=== PATIENT | female | born 1980 | race Caucasian/White ===

== ENCOUNTER → 2016-07-02 | Outpatient (REF) | payer OTHER ==
[2016-07-02 12:54] LABS: PERCENT SATURATION 6.8 % (13.2-37.4)
== END ==
LOC: M LAB REF 12:14
PROVIDERS: ATTEND Internal Medicine Medical Oncology
DX: C50.919 Malignant neoplasm of unspecified site of unspecified female breast (principal)

== ENCOUNTER → 2016-08-04 | Outpatient (REF) | payer OTHER ==
[2016-08-04 14:24] LABS: ALBUMIN 3.5 GM/DL (3.2-5.2); ALBUMIN/GLOBULIN RATIO 1.17 (1.00-1.93); ALKALINE PHOSPHATASE 70 U/L (45-117); ALT/SGPT 34 U/L (12-78); ANION GAP 7 MEQ/L (8-16); AST/SGOT 26 U/L (15-37); BILIRUBIN,TOTAL 0.1 MG/DL (0.2-1.0); BLOOD UREA NITROGEN 5 MG/DL (7-18); CALCIUM LEVEL 8.3 MG/DL (8.5-10.1); CARBON DIOXIDE LEVEL 28 MEQ/L (21-32); CHLORIDE LEVEL 107 MEQ/L (98-107); CHOLESTEROL LEVEL 166 MG/DL (<200); FREE T4 0.99 NG/DL (0.76-1.46); GLOMERULAR FILTRATION RATE > 60.0 (>60); GLUCOSE, FASTING 79 MG/DL (70-105); POTASSIUM SERUM 3.4 MEQ/L (3.5-5.1); SODIUM LEVEL 142 MEQ/L (136-145); TOTAL PROTEIN 6.5 GM/DL (6.4-8.2); TRIGLYCERIDES LEVEL 152 MG/DL (<150)
[2016-08-04 15:10] LABS: MEAN CORPUSCULAR HEMOGLOBIN 28.6 pg (27.0-33.0); MEAN CORPUSCULAR VOLUME 92.2 fl (80.0-96.0); RED CELL DISTRIBUTION WIDTH 17.5 % (11.5-14.5)
== END ==
LOC: M LAB REF 12:51
PROVIDERS: ATTEND Advanced Practice Midwife
DX: Z01.419 Encounter for gynecological examination (general) (routine) without abnormal findings (principal)

== ENCOUNTER 2018-03-19 23:37 | Emergency (ER) | payer SELFPAY, MEDICAID, OTHER ==
[2018-03-20 00:36] LABS: CONTROL LINE HCG INT CTR LINE PRESENT; HCG, SERUM QUALITATIVE NEGATIVE (NEGATIVE)
[2018-03-20 00:38] LABS: HEMATOCRIT 41.2 % (36.0-47.0); HEMOGLOBIN 14.3 g/dl (12.0-15.5); MEAN CORPUSCULAR HGB CONC 34.7 g/dl (32.0-36.5); MEAN CORPUSCULAR VOLUME 95.2 fl (80.0-96.0); PLATELET COUNT, AUTOMATED 342 10^3/uL (150-450); RED BLOOD COUNT 4.33 10^6/uL (4.00-5.40); RED CELL DISTRIBUTION WIDTH 12.5 % (11.5-14.5); WHITE BLOOD COUNT 18.9 10^3/uL (4.0-10.0)
[2018-03-20 00:58] LABS: ACETAMINOPHEN LEVEL < 2.0 UG/ML (10.0-30.0); ALBUMIN 3.8 GM/DL (3.2-5.2); ALBUMIN/GLOBULIN RATIO 1.09 (1.00-1.93); ALKALINE PHOSPHATASE 76 U/L (45-117); ALT/SGPT 15 U/L (12-78); ANION GAP 6 MEQ/L (8-16); AST/SGOT 12 U/L (7-37); BILIRUBIN,DIRECT < 0.1 MG/DL (0.0-0.2); BILIRUBIN,TOTAL 0.3 MG/DL (0.2-1.0); BLOOD UREA NITROGEN 3 MG/DL (7-18); CALCIUM LEVEL 8.6 MG/DL (8.5-10.1); CARBON DIOXIDE LEVEL 27 MEQ/L (21-32); CHLORIDE LEVEL 113 MEQ/L (98-107); CREATININE FOR GFR 0.63 MG/DL (0.55-1.30); GLOMERULAR FILTRATION RATE > 60.0 (>60); GLUCOSE, FASTING 95 MG/DL (70-100); SALICYLATE LEVEL 6.7 MG/DL (5.0-30.0); SODIUM LEVEL 146 MEQ/L (136-145); TOTAL PROTEIN 7.3 GM/DL (6.4-8.2)
[2018-03-20 01:10] LABS: AMPHETAMINES LEVEL URINE NEGATIVE (NEGATIVE); BARBITURATES URINE NEGATIVE (NEGATIVE); BENZODIAZEPINES URINE NEGATIVE (NEGATIVE); CANNABINOIDS URINE NEGATIVE (NEGATIVE); COCAINE METABOLITE URINE NEGATIVE (NEGATIVE); METHADONE URINE NEGATIVE (NEGATIVE); OPIATES URINE POSITIVE (NEGATIVE); PHENCYCLIDINE URINE NEGATIVE (NEGATIVE)
== END 2018-03-20 02:49 | disposition home or self-care (01) ==
LOC: M ED 23:37
DX: F10.229 Alcohol dependence with intoxication, unspecified (principal); Z60.9 Problem related to social environment, unspecified; Z85.3 Personal history of malignant neoplasm of breast; Z88.5 Allergy status to narcotic agent; Z88.8 Allergy status to other drugs, medicaments and biological substances
CPT/HCPCS: G0480

== ENCOUNTER 2018-03-30 10:44 | Emergency (ER) | payer SELFPAY ==
[2018-03-30] MEDS: ALBUTEROL 90 MCG/ACT 8GM HFA INHALER INH (11:25)
== END 2018-03-30 12:15 | disposition home or self-care (01) ==
LOC: M ED 10:44
DX: J01.90 Acute sinusitis, unspecified (principal); J20.9 Acute bronchitis, unspecified; Z88.5 Allergy status to narcotic agent; Z88.8 Allergy status to other drugs, medicaments and biological substances; F17.210 Nicotine dependence, cigarettes, uncomplicated
CPT/HCPCS: 71046

== ENCOUNTER → 2018-06-19 | Outpatient (CLI) | payer OTHER ==
[~2018-06-19] MED LIST: DOXY100C PO; IBUP-1022 PO; [UNRECOGNIZED DRUG - OTHER] PO
--- NOTE | 2018-06-20 02:40 | REP ---
Clinical: Acute bronchitis . Comparison: 03/30/2018 . Technique: PA and lateral. Findings: The mediastinum and cardiac silhouette are normal. The lung gupta are clear and without acute consolidation, effusion, or pneumothorax. The skeletal structures are intact and normal. A few surgical clips identified in the left breast/chest. Impression: 1. No acute cardiopulmonary process. Electronically Signed by Roberto Madrid MD 06/20/2018 02:31 A
== END ==
LOC: M LRY 12:12
PROVIDERS: ATTEND Nurse Practitioner Family
DX: J40 Bronchitis, not specified as acute or chronic (principal)

== ENCOUNTER → 2018-06-30 | Outpatient (CLI) | payer BC ==
[2018-06-30 11:32] LABS: BASO % 0.4 % (0.0-1.0); EOS # 0.1 10^3/uL (0.0-0.50); EOS % 1.1 % (0.0-3.0); HEMATOCRIT 40.1 % (36.0-47.0); HEMOGLOBIN 13.7 g/dl (12.0-15.5); LYMPH # 2.6 10^3/uL (1.5-4.5); LYMPH % 28.4 % (24.0-44.0); MEAN CORPUSCULAR HEMOGLOBIN 32.9 pg (27.0-33.0); MEAN CORPUSCULAR HGB CONC 34.2 g/dl (32.0-36.5); MEAN CORPUSCULAR VOLUME 96.4 fl (80.0-96.0); MONO # 0.5 10^3/uL (0.0-0.8); MONO % 5.4 % (0.0-5.0); NEUTROPHILS # 5.9 10^3/uL (1.8-7.7); NEUTROPHILS % 64.3 % (36.0-66.0); PLATELET COUNT, AUTOMATED 307 10^3/uL (150-450); RED BLOOD COUNT 4.16 10^6/uL (4.00-5.40); WHITE BLOOD COUNT 9.1 10^3/uL (4.0-10.0)
[2018-06-30 12:13] LABS: ALBUMIN 3.6 GM/DL (3.2-5.2); ALT/SGPT 15 U/L (12-78); BILIRUBIN,TOTAL 0.6 MG/DL (0.2-1.0); BLOOD UREA NITROGEN 5 MG/DL (7-18); CALCIUM LEVEL 8.2 MG/DL (8.5-10.1); CARBON DIOXIDE LEVEL 25 MEQ/L (21-32); CHLORIDE LEVEL 106 MEQ/L (98-107); GLOMERULAR FILTRATION RATE > 60.0 (>60); GLUCOSE, FASTING 93 MG/DL (70-100); POTASSIUM SERUM 4.3 MEQ/L (3.5-5.1); SODIUM LEVEL 138 MEQ/L (136-145); TOTAL PROTEIN 6.8 GM/DL (6.4-8.2)
== END ==
LOC: M LAB 10:43
PROVIDERS: ATTEND Nurse Practitioner Family
DX: J40 Bronchitis, not specified as acute or chronic (principal)

== ENCOUNTER → 2018-07-26 | Outpatient (REF) | payer BC ==
[2018-07-26 19:11] LABS: APPEARANCE, URINE CLEAR (CLEAR); BACTERIA, URINE AUTO 1+ (NEGATIVE); BILIRUBIN, URINE AUTO NEGATIVE (NEGATIVE); BLOOD, URINE BLOOD NEGATIVE (NEGATIVE); COLOR, URINE AMBER (YELLOW); GLUCOSE, URINE (UA) AUTO NEGATIVE (NEGATIVE); KETONE, URINE AUTO NEGATIVE (NEGATIVE); LEUKOCYTE ESTERASE, URINE AUTO NEGATIVE (NEGATIVE); MUCUS, URINE SMALL (NEGATIVE); NITRITE, URINE AUTO NEGATIVE (NEGATIVE); PROTEIN, URINE AUTO NEGATIVE (NEGATIVE); RBC, URINE AUTO 2 /HPF (0-3); SPECIFIC GRAVITY URINE AUTO 1.005 (1.002-1.035); SQUAMOUS EPITHELIAL CELL UR AU 2 /HPF (0-6); WBC, URINE AUTO 3 /HPF (0-3)
== END ==
LOC: M LAB REF 18:08
PROVIDERS: ATTEND Physician Assistant
DX: N39.0 Urinary tract infection, site not specified (principal)

== ENCOUNTER → 2019-02-22 | Outpatient (CLI) | payer BC ==
[~2019-02-22] MED LIST changes: +PROHANCE 279.3MG/ML 15ML VIAL (A9576) As Ordered ONE; +TAMO20TA8 PO
--- NOTE | 2019-02-22 17:54 | REP ---
MRI BILATERAL BREASTS WITH AND WITHOUT CONTRAST: HISTORY: Breast cancer with bilateral mastectomy and breast implants. Bilateral breast pain. TECHNIQUE: Multiple sequences obtained in the axial, coronal and sagittal planes prior to and following the intravenous administration of 10 ml ProHance. Images are evaluated in the [employer] software including dynamic axial, T1 FS images, subtraction images, color overlay images, CAD images and MIP reconstruction images. Bilateral breast implants are intact. There is no evidence of intracapsular or extracapsular rupture. No axillary adenopathy is seen. No abnormal enhancement or enhancing mass is seen in the soft tissues surrounding the implants. I do not see any significant enhancing breast tissue. IMPRESSION: BI-RADS category 2 benign breast MRI. Bilateral breast implants appear intact with no evidence of intracapsular or extracapsular rupture. I see no evidence of axillary adenopathy or other suspicious enhancing soft tissue mass. Electronically Signed by Raad Byrne MD 02/24/2019 11:02 A
== END ==
LOC: M RAD 14:50
DX: N64.4 Mastodynia (principal); Z85.3 Personal history of malignant neoplasm of breast; Z98.82 Breast implant status
CPT/HCPCS: A9576; C8908

== ENCOUNTER → 2019-11-02 | Outpatient (REF) | payer BC ==
[~2019-11-02] MED LIST changes: -PROHANCE 279.3MG/ML 15ML VIAL (A9576) As Ordered ONE
[2019-11-02 17:16] LABS: BASO % 0.6 % (0.0-1.0); EOS # 0.1 10^3/uL (0.0-0.5); EOS % 1.4 % (0.0-3.0); HEMATOCRIT 44.3 % (36.0-47.0); LYMPH # 3.8 10^3/uL (1.5-5.0); LYMPH % 53.1 % (24.0-44.0); MEAN CORPUSCULAR HEMOGLOBIN 33.7 pg (27.0-33.0); MEAN CORPUSCULAR HGB CONC 33.9 g/dl (32.0-36.5); MEAN CORPUSCULAR VOLUME 99.6 fl (80.0-96.0); MONO # 0.3 10^3/uL (0.0-0.8); MONO % 4.6 % (0.0-5.0); NEUTROPHILS # 2.9 10^3/uL (1.5-8.5); PLATELET COUNT, AUTOMATED 338 10^3/uL (150-450); RED BLOOD COUNT 4.45 10^6/uL (4.00-5.40); WHITE BLOOD COUNT 7.2 10^3/uL (4.0-10.0)
== END ==
LOC: M LAB REF 17:02
PROVIDERS: ATTEND Physician Assistant
DX: L30.9 Dermatitis, unspecified (principal)

== ENCOUNTER → 2020-10-14 | Outpatient (CLI) | payer BC ==
[~2020-10-14] MED LIST changes: +DULO1CAP5 PO; +PROHANCE 279.3MG/ML 15ML VIAL As Ordered ONE
--- NOTE | 2020-10-14 13:25 | REPVR ---
PROCEDURE INFORMATION: Exam: MR Head Without and With Contrast Exam date and time: 10/14/2020 11:33 AM Age: 40 years old Clinical indication: Pain; Headache not specified; Additional info: Brain CA with headaches. There is a history of breast cancer. TECHNIQUE: Imaging protocol: MR of the head without and with intravenous contrast. Contrast material: PROHANCE; Contrast volume: 10 ml; Contrast route: INTRAVENOUS (IV); COMPARISON: NM Bone Scan Whole Body 07/31/2015 11:16 AM FINDINGS: Brain: No acute infarct identified on the diffusion-weighted imaging. No evidence of brain parenchymal edema or intracranial mass effect. No significant white matter disease. No enhancing intracranial pathology. Cerebral ventricles: Normal. No ventriculomegaly. Bones/joints: Unremarkable. Paranasal sinuses: Normal as visualized. No acute sinusitis. Mastoid air cells: Normal as visualized. No mastoid effusion. Orbital cavity: Unremarkable. Soft tissues: Unremarkable. IMPRESSION: No acute intracranial abnormality. No evidence of intracranial metastatic disease. Electronically signed by: Tram Hugo On 10/14/2020 13:24:53 PM
== END ==
LOC: M RAD 11:26
PROVIDERS: ATTEND Internal Medicine Medical Oncology
DX: C71.9 Malignant neoplasm of brain, unspecified (principal)
CPT/HCPCS: 70553; A9576

== ENCOUNTER → 2020-11-13 | Outpatient (CLI) | payer BC ==
[~2020-11-13] MED LIST changes: -PROHANCE 279.3MG/ML 15ML VIAL As Ordered ONE
--- NOTE | 2020-11-13 11:38 | REP ---
INDICATION: PAIN IN RIGHT SHOULDER. COMPARISON: None. TECHNIQUE: Three views of the right shoulder are provided. FINDINGS: The right glenohumeral articulation is normally aligned. No fracture is seen. There is some superior subluxation of the distal clavicle relative to the acromion process raising question of AC separation injury. No acromioclavicular fracture is apparent. Right rib cage is intact. There are 2 surgical clips visible in the soft tissues along the right chest wall. IMPRESSION: Mild AC separation injury suspected. Otherwise negative right shoulder radiographs.a <Electronically signed by Charlie Kay > 11/13/20 [id number]
== END ==
LOC: M RAD 11:00
PROVIDERS: ATTEND Nurse Practitioner Family
DX: M25.511 Pain in right shoulder (principal)

== ENCOUNTER → 2021-10-13 | Outpatient (REF) | payer BC ==
[~2021-10-13] MED LIST changes: -DOXY100C PO; +DOXY100C3 PO
== END ==
LOC: M SFHCLERA 11:26
PROVIDERS: ATTEND Student in an Organized Health Care Education/Training Program
DX: Z12.4 Encounter for screening for malignant neoplasm of cervix (principal); N76.0 Acute vaginitis; L85.9 Epidermal thickening, unspecified
CPT/HCPCS: 87070; 87624; G0123

== ENCOUNTER → 2021-11-27 | Outpatient (CLI) | payer BC ==
[~2021-11-27] MED LIST changes: +PROHANCE 279.3MG/ML 15ML VIAL As Ordered ONE
== END ==
LOC: M RAD 10:32
PROVIDERS: ATTEND Internal Medicine Medical Oncology
DX: C50.412 Malignant neoplasm of upper-outer quadrant of left female breast (principal); Z98.82 Breast implant status
CPT/HCPCS: A9576; C8908

== ENCOUNTER → 2022-09-20 | Outpatient (CLI) | payer BC ==
[~2022-09-20] MED LIST changes: -PROHANCE 279.3MG/ML 15ML VIAL As Ordered ONE
[2022-09-20 12:22] LABS: BASO # 0.1 10^3/uL (0.0-0.2); BASO % 0.4 % (0.0-1.0); EOS # 0.1 10^3/uL (0.0-0.5); EOS % 0.8 % (0.0-3.0); HEMATOCRIT 42.2 % (36.0-47.0); LYMPH # 5.7 10^3/uL (1.5-5.0); LYMPH % 40.6 % (24.0-44.0); MEAN CORPUSCULAR HEMOGLOBIN 32.3 pg (27.0-33.0); MEAN CORPUSCULAR HGB CONC 33.2 g/dl (32.0-36.5); MEAN CORPUSCULAR VOLUME 97.2 fl (80.0-96.0); MONO # 0.6 10^3/uL (0.0-0.8); MONO % 4.2 % (2.0-8.0); NEUTROPHILS # 7.6 10^3/uL (1.5-8.5); NEUTROPHILS % 53.6 % (36.0-66.0); PLATELET COUNT, AUTOMATED 344 10^3/uL (150-450); RED BLOOD COUNT 4.34 10^6/uL (4.00-5.40); WHITE BLOOD COUNT 14.1 10^3/uL (4.0-10.0)
[2022-09-20 12:50] LABS: ALBUMIN 3.8 G/DL (3.2-5.2); ALKALINE PHOSPHATASE 71 U/L (46-116); ALT/SGPT 12 U/L (7.0-40); AST/SGOT 9 U/L (<34); BILIRUBIN,TOTAL 0.2 MG/DL (0.3-1.2); BLOOD UREA NITROGEN 5 MG/DL (9-23); CALCIUM LEVEL 9.4 MG/DL (8.5-10.1); CARBON DIOXIDE LEVEL 29 MMOL/L (20-31); CHLORIDE LEVEL 107 MMOL/L (98-107); CHOLESTEROL LEVEL 211 MG/DL (<200); CHOLESTEROL RISK RATIO 4.23 (<5); CREATININE FOR GFR 0.53 MG/DL (0.55-1.30); GLOMERULAR FILTRATION RATE > 60.0 (>58); GLUCOSE, FASTING 68 MG/DL (60-100); HDL CHOLESTEROL 49.8 MG/DL (>40); NON-HDL-C 161.2 MG/DL; POTASSIUM SERUM 3.5 MMOL/L (3.5-5.1); SODIUM LEVEL 136 MMOL/L (136-145); TOTAL PROTEIN 6.7 G/DL (5.7-8.2); TRIGLYCERIDES LEVEL 181 MG/DL (<150)
[2022-09-20 12:52] LABS: FREE T4 0.89 NG/DL (0.89-1.76)
[2022-09-20 12:53] LABS: THYROID STIMULATING HORMONE 2.443 uIU/ML (0.55-4.78)
== END ==
LOC: M LAB 11:43
PROVIDERS: ATTEND Student in an Organized Health Care Education/Training Program
DX: Z00.00 Encounter for general adult medical examination without abnormal findings (principal); R53.83 Other fatigue

== ENCOUNTER 2022-12-26 21:14 | Emergency (ER) | payer BC ==
[~2022-12-26] VITALS: Ht 165.1 cm; Wt 59.1 kg
[~2022-12-26 21:14] MED LIST changes: +DULO1CAP6 PO; +GABA-282 PO
[2022-12-26 22:00] LABS: HEMATOCRIT 42.5 % (36.0-47.0); HEMOGLOBIN 14.4 g/dl (12.0-15.5); MEAN CORPUSCULAR HEMOGLOBIN 32.1 pg (27.0-33.0); MEAN CORPUSCULAR HGB CONC 33.9 g/dl (32.0-36.5); MEAN CORPUSCULAR VOLUME 94.9 fl (80.0-96.0); PLATELET COUNT, AUTOMATED 332 10^3/uL (150-450); RED BLOOD COUNT 4.48 10^6/uL (4.00-5.40)
[2022-12-26 22:23] LABS: LIPASE 31 U/L (12-53)
[2022-12-26 22:25] LABS: ALBUMIN 3.9 G/DL (3.2-5.2); ALKALINE PHOSPHATASE 72 U/L (46-116); ALT/SGPT 9 U/L (7.0-40); AST/SGOT < 8 U/L (<34); BILIRUBIN,DIRECT 0.2 MG/DL (<0.4); BILIRUBIN,TOTAL 0.7 MG/DL (0.3-1.2); BLOOD UREA NITROGEN 9 MG/DL (9-23); CALCIUM LEVEL 9.2 MG/DL (8.5-10.1); CARBON DIOXIDE LEVEL 28 MMOL/L (20-31); CHLORIDE LEVEL 105 MMOL/L (98-107); CREATININE FOR GFR 0.64 MG/DL (0.55-1.30); GLOMERULAR FILTRATION RATE > 60.0 (>58); GLUCOSE, FASTING 85 MG/DL (60-100); POTASSIUM SERUM 3.9 MMOL/L (3.5-5.1); SODIUM LEVEL 137 MMOL/L (136-145); TOTAL PROTEIN 7.1 G/DL (5.7-8.2)
[2022-12-26 22:54] LABS: ATYPICAL LYMPH 4 % (0-5); EOSINOPHILS 1 % (0-3); LYMPHOCYTES 44 % (16-44); MONOCYTES 5 % (0-5); NEUTROPHILS 46 % (28-66); PLATELET ESTIMATE NORMAL (NORMAL)
[2022-12-27] MEDS ORDERED: KETOROLAC 30 MG/ML 1ML VIAL IV ONE (00:45)
[2022-12-27] MEDS ORDERED: ONDANSETRON 4MG 2ML VIAL IV ONE (00:45)
[2022-12-27] MEDS ORDERED: NS 1,000 ML IV ONE (00:45)
[2022-12-27] MEDS ORDERED: UNRESOLVED CLARIFICATION ENTRY XX STA (01:04)
[2022-12-27] MEDS ORDERED: ONDANSETRON 4MG ORAL DISINTEGRATING TAB PO ONE (01:45)
[2022-12-27] MEDS ORDERED: ONDA4TAB6 PO (01:46)
[2022-12-27 02:15] VITALS: BP 129/77; TEMP 97.8; O2SAT 99
[2022-12-28] MEDS ORDERED: UNRESOLVED CLARIFICATION ENTRY XX SCH (00:01)
== END 2022-12-27 02:15 | disposition home or self-care (01) ==
LOC: M ED 21:14
DX: A08.11 Acute gastroenteropathy due to Norwalk agent (principal); F17.200 Nicotine dependence, unspecified, uncomplicated; F10.10 Alcohol abuse, uncomplicated; Z88.5 Allergy status to narcotic agent; Z79.810 Long term (current) use of selective estrogen receptor modulators (SERMs); Z79.899 Other long term (current) drug therapy
CPT/HCPCS: 74176; 80048; 80076; 81001; 83690; 85025; 96361; 96374; 99284; J1885; J2405

== ENCOUNTER → 2023-01-06 | Outpatient (CLI) | payer BC ==
[~2023-01-06] MED LIST changes: +GASTROGRAFIN SOLUTION 30ML As Ordered ONE; +ISOVUE-370 76% 100ML VIAL As Ordered ONE; +ONDA4TAB6 PO
== END ==
LOC: M RAD 07:01
PROVIDERS: ATTEND Internal Medicine Medical Oncology
DX: C50.912 Malignant neoplasm of unspecified site of left female breast (principal); R10.84 Generalized abdominal pain
CPT/HCPCS: 74177; Q9963; Q9967

== ENCOUNTER → 2023-01-24 | Outpatient (CLI) | payer BC ==
[~2023-01-24] MED LIST changes: -GASTROGRAFIN SOLUTION 30ML As Ordered ONE; -ISOVUE-370 76% 100ML VIAL As Ordered ONE; +PROHANCE 279.3MG/ML 15ML VIAL As Ordered ONE
== END ==
LOC: M RAD 15:39
PROVIDERS: ATTEND Internal Medicine Medical Oncology
DX: C50.919 Malignant neoplasm of unspecified site of unspecified female breast (principal)

== ENCOUNTER → 2023-02-09 | Outpatient (CLI) | payer BC ==
[~2023-02-09] MED LIST changes: +ISOVUE-370 76% 100ML VIAL As Ordered ONE; -PROHANCE 279.3MG/ML 15ML VIAL As Ordered ONE
== END ==
LOC: M RAD 15:03
PROVIDERS: ATTEND Internal Medicine Medical Oncology
DX: C50.919 Malignant neoplasm of unspecified site of unspecified female breast (principal)
CPT/HCPCS: 71260; Q9967

== ENCOUNTER 2023-02-14 10:50 | Day surgery (SDC) | payer BC ==
[~2023-02-14] VITALS: Ht 165.1 cm; Wt 55.9 kg
[~2023-02-14 10:50] MED LIST changes: -ISOVUE-370 76% 100ML VIAL As Ordered ONE; +NS 1,000 ML IV ONE
[2023-02-14 12:22] VITALS: TEMP 98.1
[2023-02-14 12:56] VITALS: BP 99/58; O2SAT 99
== END 2023-02-14 12:59 | disposition home or self-care (01) ==
LOC: M OPP 10:50
PROVIDERS: ATTEND Internal Medicine Gastroenterology
DX: D12.6 Benign neoplasm of colon, unspecified (principal); K64.4 Residual hemorrhoidal skin tags; K64.8 Other hemorrhoids; K59.00 Constipation, unspecified; K30 Functional dyspepsia; K22.89 Other specified disease of esophagus; K29.70 Gastritis, unspecified, without bleeding; K31.89 Other diseases of stomach and duodenum; B37.81 Candidal esophagitis; F17.200 Nicotine dependence, unspecified, uncomplicated; Z79.891 Long term (current) use of opiate analgesic; Z79.899 Other long term (current) drug therapy; Z88.5 Allergy status to narcotic agent; Z88.6 Allergy status to analgesic agent

== ENCOUNTER → 2023-02-17 | Outpatient (REF) | payer BC ==
[~2023-02-17] MED LIST changes: -NS 1,000 ML IV ONE
== END ==
LOC: M SFHCWAGY 13:34
PROVIDERS: ATTEND Obstetrics & Gynecology
DX: Z12.4 Encounter for screening for malignant neoplasm of cervix (principal)
CPT/HCPCS: 87624; G0123

== ENCOUNTER → 2023-02-25 | Outpatient (CLI) | payer BC | LOC: M WHC 08:24 | PROVIDERS: ATTEND Obstetrics & Gynecology | DX: N93.9 Abnormal uterine and vaginal bleeding, unspecified (principal) ==

== ENCOUNTER → 2023-03-03 | Outpatient (CLI) | payer BC ==
[~2023-03-03] MED LIST changes: +PROHANCE 279.3MG/ML 15ML VIAL As Ordered ONE
== END ==
LOC: M RAD 12:35
PROVIDERS: ATTEND Internal Medicine Medical Oncology
DX: K76.89 Other specified diseases of liver (principal); C50.919 Malignant neoplasm of unspecified site of unspecified female breast
CPT/HCPCS: 74183; A9576

== ENCOUNTER 2023-03-10 08:26 | Inpatient (IN) | payer BC ==
[2023-03-10] VITALS (15 sets, daily range): BP systolic 101–158; BP diastolic 58–94; TEMP 97.7–97.9; O2SAT 96–100
[~2023-03-10] VITALS: Ht 165.1 cm; Wt 57.2 kg
[~2023-03-10 08:26] MED LIST changes: -PROHANCE 279.3MG/ML 15ML VIAL As Ordered ONE
[2023-03-10 11:10] LABS: BASO # 0.1 10^3/uL (0.0-0.2); BASO % 0.5 % (0.0-1.0); EOS # 0.1 10^3/uL (0.0-0.5); EOS % 1.1 % (0.0-3.0); HEMATOCRIT 40.6 % (36.0-47.0); HEMOGLOBIN 13.8 g/dl (12.0-15.5); LYMPH # 3.5 10^3/uL (1.5-5.0); LYMPH % 34.1 % (24.0-44.0); MEAN CORPUSCULAR HEMOGLOBIN 32.2 pg (27.0-33.0); MEAN CORPUSCULAR VOLUME 94.9 fl (80.0-96.0); MONO # 0.5 10^3/uL (0.0-0.8); MONO % 4.8 % (2.0-8.0); NEUTROPHILS # 6.1 10^3/uL (1.5-8.5); NEUTROPHILS % 59.1 % (36.0-66.0); PLATELET COUNT, AUTOMATED 339 10^3/uL (150-450); RED BLOOD COUNT 4.28 10^6/uL (4.00-5.40); WHITE BLOOD COUNT 10.4 10^3/uL (4.0-10.0)
[2023-03-10] MEDS ORDERED: MED REC IN PROGRESS XX SCH (11:15)
[2023-03-10 11:23] LABS: INR 0.95; PROTHROMBIN TIME 12.4 SECONDS (12.5-14.5)
[2023-03-10 11:24] LABS: PARTIAL THROMBOPLASTIN TIME 28.6 SECONDS (24.8-34.2)
[2023-03-10 11:32] LABS: CK-MB VALUE MASS < 1.0 NG/ML (<3.6)
[2023-03-10 11:33] LABS: BLOOD UREA NITROGEN 6 MG/DL (9-23); CARBON DIOXIDE LEVEL 24 MMOL/L (20-31); CHLORIDE LEVEL 109 MMOL/L (98-107); CREATININE FOR GFR 0.55 MG/DL (0.55-1.30); GLOMERULAR FILTRATION RATE > 60.0 (>58); GLUCOSE, FASTING 111 MG/DL (60-100); POTASSIUM SERUM 4.1 MMOL/L (3.5-5.1); SODIUM LEVEL 138 MMOL/L (136-145)
[2023-03-10] MEDS ORDERED: HOME MED LIST COMPLETE! XX SCH (11:35)
[2023-03-10] MEDS ORDERED: BISACODYL 10MG SUPP PR PRN (11:40)
[2023-03-10] MEDS ORDERED: MIDAZOLAM INJ 2MG/2ML VIAL As Ordered ONE (11:40)
[2023-03-10] MEDS ORDERED: LEVALBUTEROL 1.25MG 0.5ML CONCENTRATE NEB NEB PRN (11:40)
[2023-03-10] MEDS ORDERED: flumazeniL 0.5MG/5ML VIAL As Ordered ONE (11:41)
[2023-03-10 11:42] LABS: CPK CREATINE PHOSPHOKINASE 55 U/L (34-145); MB/CK RELATIVE INDEX 1.81 (< OR =4)
[2023-03-10] MEDS ORDERED: LIDOCAINE 1% MDV 20ML VIAL As Ordered ONE ×2 (11:42→11:43)
[2023-03-10] MEDS ORDERED: flumazeniL 0.5MG/5ML VIAL IV PRN (12:10)
[2023-03-10] MEDS ORDERED: LIDOCAINE 1% MDV 20ML VIAL SC PRN (12:10)
[2023-03-10] MEDS ORDERED: MIDAZOLAM 5MG 5ML VIAL (FOR CHEST TUBE INSERTIONS) IV PRN (12:10)
[2023-03-10 12:12] LABS: RSV AMPLIFICATION NEGATIVE (NEGATIVE)
[2023-03-10] MEDS: KCL 20MEQ IN D5/NS 1000ML 1,000 ML IV SCH (13:22)
[2023-03-10] MEDS: KETOROLAC 30 MG/ML 1ML VIAL IV SCH ×2 (13:23→19:35)
[2023-03-10] MEDS: LEVALBUTEROL 1.25MG 0.5ML CONCENTRATE NEB NEB SCH ×2 (13:27→19:47)
[2023-03-10] MEDS ORDERED: PERCOCET 5MG/325MG TAB PO PRN ×4 (13:55→16:05)
[2023-03-10] MEDS ORDERED: MIDAZOLAM INJ 2MG/2ML VIAL IV PRN (14:11)
[2023-03-10] MEDS: MORPHINE 4 MG/ML 1ML VIAL IV PRN ×2 (14:20→20:22)
[2023-03-10] MEDS: ONDANSETRON 4MG 2ML VIAL IV PRN ×2 (14:43→18:26)
[2023-03-10] MEDS ORDERED: PERCOCET 5MG/325MG TAB PO ONE (15:40)
[2023-03-10] MEDS ORDERED: METOCLOPRAMIDE INJ 10MG/2ML VIAL IV ONE (19:50)
[2023-03-10] MEDS: DOCUSATE SODIUM 100MG CAPSULE PO SCH (20:22)
[2023-03-10] MEDS: HEPARIN SOD (PORCINE) 5000UNITS/ML 1ML VIAL/SYRINGE SC SCH (20:22)
[2023-03-10] MEDS: DULoxetine 30MG CAPSULE (CYMBALTA) PO SCH (20:22)
[2023-03-10] MEDS: GABAPENTIN 300 MG CAP PO SCH (20:23)
[2023-03-11] VITALS (7 sets, daily range): BP systolic 96–119; BP diastolic 54–77; TEMP 97.1–98.6; O2SAT 91–98
[2023-03-11] MEDS: KETOROLAC 30 MG/ML 1ML VIAL IV SCH ×4 (01:01→20:24)
[2023-03-11] MEDS: LEVALBUTEROL 1.25MG 0.5ML CONCENTRATE NEB NEB SCH ×4 (02:32→19:22)
[2023-03-11] MEDS: KCL 20MEQ IN D5/NS 1000ML 1,000 ML IV SCH (03:05)
[2023-03-11 05:41] LABS: BASO % 0.5 % (0.0-1.0); EOS # 0.1 10^3/uL (0.0-0.5); EOS % 1.4 % (0.0-3.0); HEMATOCRIT 35.6 % (36.0-47.0); LYMPH # 3.3 10^3/uL (1.5-5.0); LYMPH % 51.1 % (24.0-44.0); MEAN CORPUSCULAR HEMOGLOBIN 31.9 pg (27.0-33.0); MEAN CORPUSCULAR HGB CONC 33.1 g/dl (32.0-36.5); MEAN CORPUSCULAR VOLUME 96.2 fl (80.0-96.0); MONO # 0.5 10^3/uL (0.0-0.8); MONO % 7.7 % (2.0-8.0); NEUTROPHILS # 2.5 10^3/uL (1.5-8.5); NEUTROPHILS % 39.1 % (36.0-66.0); PLATELET COUNT, AUTOMATED 280 10^3/uL (150-450); WHITE BLOOD COUNT 6.5 10^3/uL (4.0-10.0)
[2023-03-11 05:47] LABS: HEMOGLOBIN 11.8 g/dl (12.0-15.5)
[2023-03-11 06:04] LABS: BLOOD UREA NITROGEN 8 MG/DL (9-23); CALCIUM LEVEL 7.9 MG/DL (8.5-10.1); CARBON DIOXIDE LEVEL 26 MMOL/L (20-31); CHLORIDE LEVEL 108 MMOL/L (98-107); CREATININE FOR GFR 0.59 MG/DL (0.55-1.30); GLOMERULAR FILTRATION RATE > 60.0 (>58); GLUCOSE, FASTING 96 MG/DL (60-100); POTASSIUM SERUM 3.5 MMOL/L (3.5-5.1); SODIUM LEVEL 140 MMOL/L (136-145)
[2023-03-11] MEDS: PANTOPRAZOLE 40MG TAB (PROTONIX) PO SCH (08:33)
[2023-03-11] MEDS: DOCUSATE SODIUM 100MG CAPSULE PO SCH ×2 (08:33→20:24)
[2023-03-11] MEDS: MOM 30ML SUSPENSION UDC PO SCH (08:34)
[2023-03-11] MEDS: HEPARIN SOD (PORCINE) 5000UNITS/ML 1ML VIAL/SYRINGE SC SCH ×2 (08:34→20:24)
[2023-03-11] MEDS: VARENICLINE 0.5MG TABLET PO SCH (13:24)
[2023-03-11] MEDS: MORPHINE 4 MG/ML 1ML VIAL IV PRN (18:41)
[2023-03-11] MEDS: DULoxetine 30MG CAPSULE (CYMBALTA) PO SCH (20:24)
[2023-03-11] MEDS: GABAPENTIN 300 MG CAP PO SCH (20:24)
[2023-03-12] MEDS: KETOROLAC 30 MG/ML 1ML VIAL IV SCH ×3 (01:14→13:09)
[2023-03-12] MEDS: LEVALBUTEROL 1.25MG 0.5ML CONCENTRATE NEB NEB SCH ×3 (01:17→13:55)
[2023-03-12 04:13] VITALS: BP 117/72; TEMP 99.1; O2SAT 96
[2023-03-12 06:20] LABS: BASO % 0.5 % (0.0-1.0); EOS # 0.2 10^3/uL (0.0-0.5); EOS % 2.7 % (0.0-3.0); HEMATOCRIT 36.3 % (36.0-47.0); LYMPH # 2.5 10^3/uL (1.5-5.0); LYMPH % 39.9 % (24.0-44.0); MEAN CORPUSCULAR HEMOGLOBIN 31.9 pg (27.0-33.0); MEAN CORPUSCULAR HGB CONC 33.1 g/dl (32.0-36.5); MEAN CORPUSCULAR VOLUME 96.5 fl (80.0-96.0); MONO # 0.4 10^3/uL (0.0-0.8); MONO % 6.8 % (2.0-8.0); NEUTROPHILS # 3.2 10^3/uL (1.5-8.5); NEUTROPHILS % 49.9 % (36.0-66.0); PLATELET COUNT, AUTOMATED 302 10^3/uL (150-450); RED BLOOD COUNT 3.76 10^6/uL (4.00-5.40); WHITE BLOOD COUNT 6.4 10^3/uL (4.0-10.0)
[2023-03-12 06:46] LABS: BLOOD UREA NITROGEN 6 MG/DL (9-23); CALCIUM LEVEL 8.4 MG/DL (8.5-10.1); CARBON DIOXIDE LEVEL 24 MMOL/L (20-31); CHLORIDE LEVEL 108 MMOL/L (98-107); CREATININE FOR GFR 0.57 MG/DL (0.55-1.30); GLOMERULAR FILTRATION RATE > 60.0 (>58); GLUCOSE, FASTING 102 MG/DL (60-100); POTASSIUM SERUM 4.1 MMOL/L (3.5-5.1); SODIUM LEVEL 141 MMOL/L (136-145)
[2023-03-12 07:32] VITALS: BP 109/67; TEMP 97.7; O2SAT 98
[2023-03-12] MEDS: VARENICLINE 0.5MG TABLET PO SCH (08:58)
[2023-03-12] MEDS: HEPARIN SOD (PORCINE) 5000UNITS/ML 1ML VIAL/SYRINGE SC SCH (08:59)
[2023-03-12] MEDS: DOCUSATE SODIUM 100MG CAPSULE PO SCH (08:59)
[2023-03-12] MEDS: PANTOPRAZOLE 40MG TAB (PROTONIX) PO SCH (08:59)
[2023-03-12] MEDS: MOM 30ML SUSPENSION UDC PO SCH (09:00)
[2023-03-12 12:00] VITALS: BP 124/74; TEMP 97.9; O2SAT 98
[2023-03-12 15:40] VITALS: BP 107/66; TEMP 96.7; O2SAT 96
== END 2023-03-12 18:17 | disposition home or self-care (01) | DRG 143 ==
LOC: M ED 08:26 → M ED INP 11:39 → ENRESERV 11:47 → M PCU 12:02
PROVIDERS: ADMIT Internal Medicine; ATTEND Internal Medicine Nephrology
PROC: 0W9930Z Drainage of Right Pleural Cavity with Drainage Device, Percutaneous Approach (ICD-10-PCS; principal; 2023-03-10)
DX: J93.83 Other pneumothorax (principal); G62.9 Polyneuropathy, unspecified; K76.89 Other specified diseases of liver; J43.9 Emphysema, unspecified; Z92.21 Personal history of antineoplastic chemotherapy; Z85.3 Personal history of malignant neoplasm of breast; F41.9 Anxiety disorder, unspecified; K64.8 Other hemorrhoids; K29.70 Gastritis, unspecified, without bleeding; Z88.5 Allergy status to narcotic agent; Z88.8 Allergy status to other drugs, medicaments and biological substances; Z79.899 Other long term (current) drug therapy; Z80.3 Family history of malignant neoplasm of breast; Z80.1 Family history of malignant neoplasm of trachea, bronchus and lung; Z80.51 Family history of malignant neoplasm of kidney; F17.200 Nicotine dependence, unspecified, uncomplicated

== ENCOUNTER 2023-05-02 12:32 | Inpatient (IN) | payer BC ==
[~2023-05-02] VITALS: Ht 165.1 cm; Wt 56.5 kg
[2023-05-02] MEDS ORDERED: VARE1TAB7 PO (12:44)
[2023-05-02 13:21] LABS: BASO % 0.5 % (0.0-1.0); EOS # 0.1 10^3/uL (0.0-0.5); EOS % 1.3 % (0.0-3.0); HEMATOCRIT 40.1 % (36.0-47.0); HEMOGLOBIN 13.7 g/dl (12.0-15.5); LYMPH # 2.8 10^3/uL (1.5-5.0); LYMPH % 36.1 % (24.0-44.0); MEAN CORPUSCULAR HEMOGLOBIN 32.2 pg (27.0-33.0); MEAN CORPUSCULAR HGB CONC 34.2 g/dl (32.0-36.5); MEAN CORPUSCULAR VOLUME 94.1 fl (80.0-96.0); MONO # 0.6 10^3/uL (0.0-0.8); MONO % 7.9 % (2.0-8.0); NEUTROPHILS # 4.1 10^3/uL (1.5-8.5); NEUTROPHILS % 53.9 % (36.0-66.0); PLATELET COUNT, AUTOMATED 328 10^3/uL (150-450); RED BLOOD COUNT 4.26 10^6/uL (4.00-5.40); WHITE BLOOD COUNT 7.6 10^3/uL (4.0-10.0)
[2023-05-02] MEDS ORDERED: BISACODYL 10MG SUPP PR PRN (13:25)
[2023-05-02] MEDS ORDERED: ONDANSETRON 4MG 2ML VIAL IV PRN (13:25)
[2023-05-02] MEDS ORDERED: KCL 20MEQ IN D5/NS 1000ML 1,000 ML IV SCH (13:25)
[2023-05-02] MEDS ORDERED: LEVALBUTEROL 1.25MG 0.5ML CONCENTRATE NEB NEB PRN (13:25)
[2023-05-02] MEDS ORDERED: PERCOCET 5MG/325MG TAB PO PRN ×2 (13:25)
[2023-05-02] MEDS ORDERED: MIDAZOLAM INJ 2MG/2ML VIAL IV STA (13:35)
[2023-05-02] MEDS ORDERED: flumazeniL 0.5MG/5ML VIAL IV STA (13:35)
[2023-05-02] MEDS ORDERED: LIDOCAINE 1% MDV 20ML VIAL SC STA (13:35)
[2023-05-02 13:46] LABS: CPK CREATINE PHOSPHOKINASE 66 U/L (34-145)
[2023-05-02 13:47] LABS: ALBUMIN 3.8 G/DL (3.2-5.2); ALKALINE PHOSPHATASE 62 U/L (46-116); ALT/SGPT < 9 U/L (7.0-40); AST/SGOT < 8 U/L (<34); BILIRUBIN,DIRECT 0.1 MG/DL (<0.4); BILIRUBIN,TOTAL 0.4 MG/DL (0.3-1.2); BLOOD UREA NITROGEN 6 MG/DL (9-23); CALCIUM LEVEL 9.2 MG/DL (8.5-10.1); CARBON DIOXIDE LEVEL 26 MMOL/L (20-31); CHLORIDE LEVEL 107 MMOL/L (98-107); CK-MB VALUE MASS < 1.0 NG/ML (<3.6); CREATININE FOR GFR 0.59 MG/DL (0.55-1.30); GLOMERULAR FILTRATION RATE > 60.0 (>58); GLUCOSE, FASTING 56 MG/DL (60-100); MB/CK RELATIVE INDEX 1.51 (< OR =4); POTASSIUM SERUM 4.7 MMOL/L (3.5-5.1); SODIUM LEVEL 139 MMOL/L (136-145); TOTAL PROTEIN 6.7 G/DL (5.7-8.2)
[2023-05-02 13:48] LABS: THYROID STIMULATING HORMONE 2.122 uIU/ML (0.55-4.78); THYROXINE (T4) 8.4 UG/DL (4.5-10.9)
[2023-05-02 13:52] LABS: RSV AMPLIFICATION NEGATIVE (NEGATIVE)
[2023-05-02] MEDS: LEVALBUTEROL 1.25MG 0.5ML CONCENTRATE NEB NEB SCH ×2 (14:32→18:18)
[2023-05-02 14:34] LABS: CK-MB VALUE MASS < 1.0 NG/ML (<3.6)
[2023-05-02 14:36] LABS: CPK CREATINE PHOSPHOKINASE 66 U/L (34-145); MB/CK RELATIVE INDEX 1.51 (< OR =4)
[2023-05-02] MEDS: KETOROLAC 30 MG/ML 1ML VIAL IV SCH ×2 (14:38→21:09)
[2023-05-02 14:42] LABS: BLOOD UREA NITROGEN < 5 MG/DL (9-23); CALCIUM LEVEL 8.7 MG/DL (8.5-10.1); CARBON DIOXIDE LEVEL 26 MMOL/L (20-31); CHLORIDE LEVEL 109 MMOL/L (98-107); CREATININE FOR GFR 0.54 MG/DL (0.55-1.30); GLOMERULAR FILTRATION RATE > 60.0 (>58); GLUCOSE, FASTING 78 MG/DL (60-100); POTASSIUM SERUM 3.6 MMOL/L (3.5-5.1); SODIUM LEVEL 141 MMOL/L (136-145)
[2023-05-02] MEDS ORDERED: HOME MED LIST COMPLETE! XX SCH (16:55)
[2023-05-02 17:13] VITALS: BP 115/60; TEMP 97.8; O2SAT 98
[2023-05-02 19:52] VITALS: BP 109/60; O2SAT 98
[2023-05-02] MEDS: HEPARIN SOD (PORCINE) 5000UNITS/ML 1ML VIAL/SYRINGE SC SCH (20:59)
[2023-05-02] MEDS: DOCUSATE SODIUM 100MG CAPSULE PO SCH (20:59)
[2023-05-03 00:08] VITALS: BP 112/60; TEMP 97.6; O2SAT 98
[2023-05-03] MEDS: LEVALBUTEROL 1.25MG 0.5ML CONCENTRATE NEB NEB SCH ×2 (01:19→07:37)
[2023-05-03] MEDS: KETOROLAC 30 MG/ML 1ML VIAL IV SCH ×2 (03:00→09:02)
[2023-05-03 04:29] VITALS: BP 111/62; TEMP 97.7; O2SAT 96
[2023-05-03 06:09] LABS: BASO % 0.5 % (0.0-1.0); EOS # 0.2 10^3/uL (0.0-0.5); EOS % 2.5 % (0.0-3.0); HEMATOCRIT 38.9 % (36.0-47.0); LYMPH # 2.9 10^3/uL (1.5-5.0); MEAN CORPUSCULAR HEMOGLOBIN 31.9 pg (27.0-33.0); MEAN CORPUSCULAR HGB CONC 33.4 g/dl (32.0-36.5); MEAN CORPUSCULAR VOLUME 95.3 fl (80.0-96.0); MONO # 0.5 10^3/uL (0.0-0.8); MONO % 6.1 % (2.0-8.0); NEUTROPHILS # 4.4 10^3/uL (1.5-8.5); NEUTROPHILS % 54.5 % (36.0-66.0); PLATELET COUNT, AUTOMATED 307 10^3/uL (150-450); RED BLOOD COUNT 4.08 10^6/uL (4.00-5.40)
[2023-05-03 06:34] LABS: BLOOD UREA NITROGEN 8 MG/DL (9-23); CALCIUM LEVEL 8.9 MG/DL (8.5-10.1); CARBON DIOXIDE LEVEL 27 MMOL/L (20-31); CHLORIDE LEVEL 107 MMOL/L (98-107); CREATININE FOR GFR 0.63 MG/DL (0.55-1.30); GLOMERULAR FILTRATION RATE > 60.0 (>58); GLUCOSE, FASTING 105 MG/DL (60-100); SODIUM LEVEL 140 MMOL/L (136-145)
[2023-05-03 08:00] VITALS: BP 109/62; TEMP 97.3; O2SAT 97
[2023-05-03] MEDS ORDERED: PANTOPRAZOLE 40MG VIAL IV SCH (09:00)
[2023-05-03] MEDS ORDERED: PANTOPRAZOLE 40MG TAB (PROTONIX) PO SCH (09:00)
[2023-05-03] MEDS ORDERED: MOM 30ML SUSPENSION UDC PO SCH (09:00)
[2023-05-03] MEDS: HEPARIN SOD (PORCINE) 5000UNITS/ML 1ML VIAL/SYRINGE SC SCH (09:01)
[2023-05-03] MEDS: DOCUSATE SODIUM 100MG CAPSULE PO SCH (09:02)
[2023-05-03] MEDS ORDERED: PERCOCET PO (10:08)
[2023-05-03] MEDS ORDERED: GABAPENTIN 300 MG CAP PO SCH (21:00)
[2023-05-03] MEDS ORDERED: DULoxetine 30MG CAPSULE (CYMBALTA) PO SCH (21:00)
== END 2023-05-03 12:06 | disposition home or self-care (01) | DRG 143 ==
LOC: M ED 12:32 → M ED INP 13:21 → M PCU 13:49
PROVIDERS: ADMIT Internal Medicine; ATTEND Student in an Organized Health Care Education/Training Program
DX: J93.83 Other pneumothorax (principal); G62.0 Drug-induced polyneuropathy; J43.9 Emphysema, unspecified; Z85.3 Personal history of malignant neoplasm of breast; Z88.5 Allergy status to narcotic agent; Z88.8 Allergy status to other drugs, medicaments and biological substances; Z79.899 Other long term (current) drug therapy; K64.8 Other hemorrhoids; F41.9 Anxiety disorder, unspecified; Z92.21 Personal history of antineoplastic chemotherapy; Z87.891 Personal history of nicotine dependence

== ENCOUNTER → 2023-05-20 | Outpatient (CLI) | payer BC ==
[~2023-05-20] MED LIST changes: +PERCOCET PO; +VARE1TAB7 PO
== END ==
LOC: M RAD 12:06
PROVIDERS: ATTEND Thoracic Surgery (Cardiothoracic Vascular Surgery)
DX: J93.9 Pneumothorax, unspecified (principal)

== ENCOUNTER → 2023-05-26 | Outpatient (CLI) | payer BC | LOC: M CARPUL 15:05 | PROVIDERS: ATTEND Thoracic Surgery (Cardiothoracic Vascular Surgery) | DX: J43.9 Emphysema, unspecified (principal); R06.02 Shortness of breath ==

== ENCOUNTER → 2023-05-30 | Outpatient (CLI) | payer BC ==
[2023-05-30 13:57] LABS: ABG HCO3 23.6 MMOL/L (22.0-26.0); ABG O2 SATURATION 97.6 % (95.0-99.0); ABG PARTIAL PRESSURE CO2 35.2 mmHg (35.0-45.0); ABG PARTIAL PRESSURE O2 101.5 mmHg (75.0-100.0); ABG STANDARD HCO3 24.5 MMOL/L. (22.0-26.0); ABG TOTAL CO2 24.7 MMOL/L (22.0-29.0); ABG pH (ARTERIAL) 7.444 UNITS (7.350-7.450)
[2023-05-30 14:32] LABS: APPEARANCE, URINE CLEAR (CLEAR); BACTERIA, URINE AUTO NEGATIVE (NEGATIVE); BILIRUBIN, URINE AUTO NEGATIVE (NEGATIVE); BLOOD, URINE BLOOD NEGATIVE (NEGATIVE); COLOR, URINE YELLOW (YELLOW); GLUCOSE, URINE (UA) AUTO NEGATIVE (NEGATIVE); KETONE, URINE AUTO NEGATIVE (NEGATIVE); LEUKOCYTE ESTERASE, URINE AUTO NEGATIVE (NEGATIVE); NITRITE, URINE AUTO NEGATIVE (NEGATIVE); PROTEIN, URINE AUTO NEGATIVE (NEGATIVE); RBC, URINE AUTO 1 /HPF (0-3); SPECIFIC GRAVITY URINE AUTO 1.006 (1.002-1.035); SQUAMOUS EPITHELIAL CELL UR AU 2 /HPF (0-6); UROBILINOGEN, URINE AUTO 0.2 mg/dL (0.0-2.0); WBC, URINE AUTO 1 /HPF (0-3)
[2023-05-30 14:43] LABS: BLOOD UREA NITROGEN 6 MG/DL (9-23); CALCIUM LEVEL 8.9 MG/DL (8.5-10.1); CARBON DIOXIDE LEVEL 29 MMOL/L (20-31); CHLORIDE LEVEL 105 MMOL/L (98-107); CREATININE FOR GFR 0.57 MG/DL (0.55-1.30); GLOMERULAR FILTRATION RATE > 60.0 (>58); GLUCOSE, FASTING 93 MG/DL (60-100); POTASSIUM SERUM 3.5 MMOL/L (3.5-5.1); SODIUM LEVEL 140 MMOL/L (136-145)
[2023-05-30 14:45] LABS: HEMATOCRIT 37.7 % (36.0-47.0); HEMOGLOBIN 12.7 g/dl (12.0-15.5); MEAN CORPUSCULAR HEMOGLOBIN 31.1 pg (27.0-33.0); MEAN CORPUSCULAR HGB CONC 33.7 g/dl (32.0-36.5); MEAN CORPUSCULAR VOLUME 92.4 fl (80.0-96.0); PLATELET COUNT, AUTOMATED 318 10^3/uL (150-450); RED BLOOD COUNT 4.08 10^6/uL (4.00-5.40); WHITE BLOOD COUNT 8.8 10^3/uL (4.0-10.0)
[2023-05-30 14:57] LABS: PROTHROMBIN TIME 12.9 SECONDS (12.5-14.5)
[2023-05-30 14:58] LABS: PARTIAL THROMBOPLASTIN TIME 27.3 SECONDS (24.8-34.2)
== END ==
LOC: M LAB 13:16
PROVIDERS: ATTEND Thoracic Surgery (Cardiothoracic Vascular Surgery)
DX: R91.1 Solitary pulmonary nodule (principal)

== ENCOUNTER 2023-06-02 07:57 | Inpatient (IN) | payer BC ==
[2023-06-02] VITALS (10 sets, daily range): BP systolic 94–119; BP diastolic 55–71; TEMP 98.2–98.6; O2SAT 98–100
[~2023-06-02] VITALS: Ht 165.1 cm; Wt 61.4 kg
[~2023-06-02 07:57] MED LIST changes: +LIDOCAINE 2% 100MG/5ML SDV (FOR ANES.) As Ordered ONE; +ONDANSETRON 4MG 2ML VIAL As Ordered ONE; +ROCURONIUM BROMIDE 50MG/5ML VIAL As Ordered ONE; +SUGAMMADEX SODIUM 500 MG/5 ML VIAL (BRIDION) As Ordered ONE; +fentaNYL 250 MCG/5 ML INJECTION As Ordered ONE; +propofoL 200 MG/20 ML VIAL As Ordered ONE
[2023-06-02] MEDS: diphenhydrAMINE 50MG/ML VIAL IV PRN (09:08)
[2023-06-02] MEDS: LR 1,000 ML IV SCH ×2 (09:09→12:35)
[2023-06-02] MEDS: MIDAZOLAM INJ 2MG/2ML VIAL IV PRN (09:41)
[2023-06-02] MEDS: CETACAINE SPRAY 5GM As Ordered ONE (10:08)
[2023-06-02] MEDS: ceFAZolin SOD 2 GM in IV 1 EA IV ONE (10:22)
[2023-06-02] MEDS ORDERED: ACETAMINOPHEN 1000MG 100ML IV BAG As Ordered ONE (10:41)
[2023-06-02] MEDS: MUPIROCIN 2% OINT 22 GM TUBE TOP ONE (11:00)
[2023-06-02] MEDS: STERILE TALC POWDER 3GM VIAL As Ordered ONE (12:02)
[2023-06-02] MEDS ORDERED: KETOROLAC 60MG 2ML VIAL As Ordered ONE (12:06)
[2023-06-02] MEDS ORDERED: ONDANSETRON 4MG 2ML VIAL IV PRN ×3 (12:25→12:40)
[2023-06-02] MEDS ORDERED: ACETAMINOPHEN TAB 650MG DOSE (2X325MG) PO PRN (12:25)
[2023-06-02] MEDS ORDERED: BISACODYL 10MG SUPP PR PRN (12:25)
[2023-06-02] MEDS ORDERED: fentaNYL 100 MCG/2 ML INJECTION IV PRN (12:35)
[2023-06-02] MEDS ORDERED: NALOXONE INJ 0.4MG/1ML VIAL IV PRN (12:40)
[2023-06-02] MEDS ORDERED: EPIDURAL/PCA KEYS XX PRN (12:40)
[2023-06-02] MEDS ORDERED: NALBUPHINE HCL 1MG/0.1ML (100MG/10ML) MDV IV PRN (12:40)
[2023-06-02] MEDS ORDERED: METOCLOPRAMIDE INJ 10MG/2ML VIAL IV PRN (12:40)
[2023-06-02] MEDS: KCL 20MEQ IN D5/NS 1000ML 1,000 ML IV SCH (13:01)
[2023-06-02 13:22] LABS: BASO # 0.1 10^3/uL (0.0-0.2); BASO % 0.4 % (0.0-1.0); EOS % 0.1 % (0.0-3.0); HEMATOCRIT 39.1 % (36.0-47.0); HEMOGLOBIN 13.3 g/dl (12.0-15.5); LYMPH # 1.6 10^3/uL (1.5-5.0); LYMPH % 10.3 % (24.0-44.0); MONO # 0.2 10^3/uL (0.0-0.8); MONO % 1.3 % (2.0-8.0); NEUTROPHILS # 13.8 10^3/uL (1.5-8.5); NEUTROPHILS % 87.5 % (36.0-66.0); PLATELET COUNT, AUTOMATED 343 10^3/uL (150-450); RED BLOOD COUNT 4.16 10^6/uL (4.00-5.40); WHITE BLOOD COUNT 15.8 10^3/uL (4.0-10.0)
[2023-06-02 13:26] LABS: ABG BASE EXCESS -4.2 (-2.0-2.0); ABG HCO3 22.6 MMOL/L (22.0-26.0); ABG O2 SATURATION 99.5 % (95.0-99.0); ABG PARTIAL PRESSURE CO2 47.9 mmHg (35.0-45.0); ABG PARTIAL PRESSURE O2 369.5 mmHg (75.0-100.0); ABG pH (ARTERIAL) 7.291 UNITS (7.350-7.450)
[2023-06-02 13:43] LABS: BLOOD UREA NITROGEN 6 MG/DL (9-23); CALCIUM LEVEL 8.1 MG/DL (8.5-10.1); CARBON DIOXIDE LEVEL 28 MMOL/L (20-31); CHLORIDE LEVEL 107 MMOL/L (98-107); GLOMERULAR FILTRATION RATE > 60.0 (>58); GLUCOSE, FASTING 111 MG/DL (60-100); POTASSIUM SERUM 3.7 MMOL/L (3.5-5.1); SODIUM LEVEL 140 MMOL/L (136-145)
[2023-06-02] MEDS: LEVALBUTEROL 1.25MG 0.5ML CONCENTRATE NEB NEB SCH (14:00)
[2023-06-02] MEDS ORDERED: HOME MED LIST COMPLETE! XX SCH (15:15)
[2023-06-02] MEDS: FENTANYL/BUPIVACAINE/NACL BAG 250 ML EPIDURAL SCH (15:36)
[2023-06-02] MEDS: ceFAZolin SOD 1 GM in D5W MINI-BAG PLUS 50 ML IV SCH (18:38)
[2023-06-02] MEDS: KETOROLAC 30 MG/ML 1ML VIAL IV SCH (18:39)
[2023-06-02] MEDS ORDERED: VARENICLINE 1MG TABLET PO SCH (21:00)
[2023-06-02] MEDS: DOCUSATE SODIUM 100MG CAPSULE PO SCH (21:45)
[2023-06-02] MEDS: DULoxetine 30MG CAPSULE (CYMBALTA) PO SCH (21:46)
[2023-06-02] MEDS: GABAPENTIN 300 MG CAP PO SCH (21:46)
[2023-06-02] MEDS: HEPARIN SOD (PORCINE) 5000UNITS/ML 1ML VIAL/SYRINGE SC SCH (21:46)
[2023-06-03] VITALS (12 sets, daily range): BP systolic 98–118; BP diastolic 58–72; TEMP 97.9–99.4; O2SAT 97–100
[2023-06-03 04:58] LABS: BASO % 0.3 % (0.0-1.0); EOS % 0.3 % (0.0-3.0); LYMPH # 3.2 10^3/uL (1.5-5.0); MEAN CORPUSCULAR HEMOGLOBIN 32.2 pg (27.0-33.0); MEAN CORPUSCULAR HGB CONC 34.4 g/dl (32.0-36.5); MEAN CORPUSCULAR VOLUME 93.7 fl (80.0-96.0); MONO # 0.7 10^3/uL (0.0-0.8); NEUTROPHILS # 7.5 10^3/uL (1.5-8.5); PLATELET COUNT, AUTOMATED 277 10^3/uL (150-450); RED BLOOD COUNT 3.35 10^6/uL (4.00-5.40); WHITE BLOOD COUNT 11.5 10^3/uL (4.0-10.0)
[2023-06-03 05:12] LABS: HEMATOCRIT 31.4 % (36.0-47.0); HEMOGLOBIN 10.8 g/dl (12.0-15.5)
[2023-06-03 05:20] LABS: BLOOD UREA NITROGEN < 5 MG/DL (9-23); CALCIUM LEVEL 7.7 MG/DL (8.5-10.1); CARBON DIOXIDE LEVEL 26 MMOL/L (20-31); CHLORIDE LEVEL 109 MMOL/L (98-107); CREATININE FOR GFR 0.56 MG/DL (0.55-1.30); GLOMERULAR FILTRATION RATE > 60.0 (>58); GLUCOSE, FASTING 115 MG/DL (60-100); POTASSIUM SERUM 3.4 MMOL/L (3.5-5.1); SODIUM LEVEL 142 MMOL/L (136-145)
[2023-06-03 05:25] LABS: ABG BASE EXCESS -2.3 (-2.0-2.0); ABG HCO3 22.4 MMOL/L (22.0-26.0); ABG O2 SATURATION 98.5 % (95.0-99.0); ABG PARTIAL PRESSURE CO2 38.1 mmHg (35.0-45.0); ABG PARTIAL PRESSURE O2 138.5 mmHg (75.0-100.0); ABG STANDARD HCO3 22.6 MMOL/L. (22.0-26.0); ABG TOTAL CO2 23.6 MMOL/L (22.0-29.0); ABG pH (ARTERIAL) 7.387 UNITS (7.350-7.450)
[2023-06-03] MEDS: POTASSIUM CHLORIDE 10MEQ SR TABLET PO ONE ×2 (06:05→10:05)
[2023-06-03] MEDS: PANTOPRAZOLE 40MG TAB (PROTONIX) PO SCH (10:05)
[2023-06-03] MEDS: MOM 30ML SUSPENSION UDC PO SCH (10:34)
[2023-06-03] MEDS: diphenhydrAMINE 50MG/ML VIAL IV PRN (20:20)
[2023-06-04] VITALS (7 sets, daily range): BP systolic 102–118; BP diastolic 63–76; TEMP 97.6–99.3; O2SAT 95–97
[2023-06-04 05:35] LABS: BASO % 0.3 % (0.0-1.0); EOS # 0.1 10^3/uL (0.0-0.5); EOS % 1.4 % (0.0-3.0); HEMATOCRIT 33.2 % (36.0-47.0); LYMPH # 3.3 10^3/uL (1.5-5.0); MEAN CORPUSCULAR HEMOGLOBIN 31.3 pg (27.0-33.0); MEAN CORPUSCULAR HGB CONC 33.1 g/dl (32.0-36.5); MEAN CORPUSCULAR VOLUME 94.3 fl (80.0-96.0); MONO # 0.7 10^3/uL (0.0-0.8); MONO % 6.5 % (2.0-8.0); NEUTROPHILS # 5.9 10^3/uL (1.5-8.5); NEUTROPHILS % 58.5 % (36.0-66.0); PLATELET COUNT, AUTOMATED 302 10^3/uL (150-450); RED BLOOD COUNT 3.52 10^6/uL (4.00-5.40)
[2023-06-04 06:05] LABS: BLOOD UREA NITROGEN < 5 MG/DL (9-23); CALCIUM LEVEL 8.5 MG/DL (8.5-10.1); CARBON DIOXIDE LEVEL 28 MMOL/L (20-31); CHLORIDE LEVEL 107 MMOL/L (98-107); CREATININE FOR GFR 0.59 MG/DL (0.55-1.30); GLOMERULAR FILTRATION RATE > 60.0 (>58); GLUCOSE, FASTING 86 MG/DL (60-100); SODIUM LEVEL 140 MMOL/L (136-145)
[2023-06-04] MEDS: MIRALAX *UNIT DOSE* 17GM PACKET PO SCH (12:38)
[2023-06-04] MEDS ORDERED: VASOPRESSIN INJ 20 UNITS in NS 499 ML IV SCH (18:00)
[2023-06-05] VITALS (18 sets, daily range): BP systolic 101–124; BP diastolic 56–84; TEMP 97.6–98.9; O2SAT 92–98
[2023-06-05 05:57] LABS: BASO % 0.3 % (0.0-1.0); EOS # 0.2 10^3/uL (0.0-0.5); EOS % 1.9 % (0.0-3.0); HEMATOCRIT 34.1 % (36.0-47.0); HEMOGLOBIN 11.1 g/dl (12.0-15.5); LYMPH # 2.9 10^3/uL (1.5-5.0); LYMPH % 30.5 % (24.0-44.0); MEAN CORPUSCULAR HEMOGLOBIN 31.4 pg (27.0-33.0); MEAN CORPUSCULAR HGB CONC 32.6 g/dl (32.0-36.5); MEAN CORPUSCULAR VOLUME 96.6 fl (80.0-96.0); MONO # 0.6 10^3/uL (0.0-0.8); MONO % 6.6 % (2.0-8.0); NEUTROPHILS # 5.7 10^3/uL (1.5-8.5); NEUTROPHILS % 60.4 % (36.0-66.0); PLATELET COUNT, AUTOMATED 314 10^3/uL (150-450); RED BLOOD COUNT 3.53 10^6/uL (4.00-5.40); WHITE BLOOD COUNT 9.5 10^3/uL (4.0-10.0)
[2023-06-05 06:22] LABS: BLOOD UREA NITROGEN < 5 MG/DL (9-23); CALCIUM LEVEL 8.4 MG/DL (8.5-10.1); CARBON DIOXIDE LEVEL 30 MMOL/L (20-31); CHLORIDE LEVEL 107 MMOL/L (98-107); CREATININE FOR GFR 0.62 MG/DL (0.55-1.30); GLOMERULAR FILTRATION RATE > 60.0 (>58); GLUCOSE, FASTING 83 MG/DL (60-100); POTASSIUM SERUM 4.6 MMOL/L (3.5-5.1); SODIUM LEVEL 141 MMOL/L (136-145)
[2023-06-05] MEDS: BISACODYL 10MG SUPP PR ONE (12:20)
[2023-06-05] MEDS: SENOKOT S TAB PO SCH (12:21)
[2023-06-05] MEDS: MIRALAX *UNIT DOSE* 17GM PACKET PO SCH (20:47)
[2023-06-06] VITALS: BP 117/75; TEMP 98.2; O2SAT 97
[2023-06-06 04:00] VITALS: BP 108/72; TEMP 98.1; O2SAT 98
[2023-06-06 04:33] LABS: BASO % 0.5 % (0.0-1.0); EOS # 0.3 10^3/uL (0.0-0.5); EOS % 3.5 % (0.0-3.0); HEMATOCRIT 33.9 % (36.0-47.0); HEMOGLOBIN 11.1 g/dl (12.0-15.5); LYMPH % 39.9 % (24.0-44.0); MEAN CORPUSCULAR HEMOGLOBIN 30.9 pg (27.0-33.0); MEAN CORPUSCULAR HGB CONC 32.7 g/dl (32.0-36.5); MEAN CORPUSCULAR VOLUME 94.4 fl (80.0-96.0); MONO # 0.5 10^3/uL (0.0-0.8); MONO % 6.7 % (2.0-8.0); NEUTROPHILS # 3.7 10^3/uL (1.5-8.5); NEUTROPHILS % 49.1 % (36.0-66.0); PLATELET COUNT, AUTOMATED 354 10^3/uL (150-450); RED BLOOD COUNT 3.59 10^6/uL (4.00-5.40); WHITE BLOOD COUNT 7.5 10^3/uL (4.0-10.0)
[2023-06-06 05:00] LABS: BLOOD UREA NITROGEN < 5 MG/DL (9-23); CALCIUM LEVEL 8.5 MG/DL (8.5-10.1); CARBON DIOXIDE LEVEL 28 MMOL/L (20-31); CHLORIDE LEVEL 106 MMOL/L (98-107); CREATININE FOR GFR 0.62 MG/DL (0.55-1.30); GLOMERULAR FILTRATION RATE > 60.0 (>58); GLUCOSE, FASTING 94 MG/DL (60-100); POTASSIUM SERUM 4.1 MMOL/L (3.5-5.1); SODIUM LEVEL 140 MMOL/L (136-145)
[2023-06-06 08:00] VITALS: BP 98/62; TEMP 98.5; O2SAT 98
[2023-06-06 12:01] VITALS: BP 113/69; TEMP 98; O2SAT 97
[2023-06-06 16:00] VITALS: BP 118/74; TEMP 98.8; O2SAT 97
[2023-06-06 20:00] VITALS: BP 127/70; TEMP 97.8; O2SAT 97
[2023-06-07] VITALS: BP 128/73; TEMP 98.4; O2SAT 98
[2023-06-07 04:00] VITALS: BP 112/58; TEMP 98.1; O2SAT 97
[2023-06-07 05:12] LABS: BASO % 0.6 % (0.0-1.0); EOS # 0.3 10^3/uL (0.0-0.5); EOS % 3.6 % (0.0-3.0); HEMATOCRIT 34.2 % (36.0-47.0); HEMOGLOBIN 11.3 g/dl (12.0-15.5); LYMPH # 2.9 10^3/uL (1.5-5.0); LYMPH % 40.7 % (24.0-44.0); MEAN CORPUSCULAR VOLUME 96.9 fl (80.0-96.0); MONO # 0.5 10^3/uL (0.0-0.8); MONO % 6.5 % (2.0-8.0); NEUTROPHILS # 3.5 10^3/uL (1.5-8.5); NEUTROPHILS % 48.3 % (36.0-66.0); PLATELET COUNT, AUTOMATED 379 10^3/uL (150-450); RED BLOOD COUNT 3.53 10^6/uL (4.00-5.40); WHITE BLOOD COUNT 7.1 10^3/uL (4.0-10.0)
[2023-06-07 05:39] LABS: BLOOD UREA NITROGEN < 5 MG/DL (9-23); CALCIUM LEVEL 8.6 MG/DL (8.5-10.1); CARBON DIOXIDE LEVEL 31 MMOL/L (20-31); CHLORIDE LEVEL 108 MMOL/L (98-107); CREATININE FOR GFR 0.63 MG/DL (0.55-1.30); GLOMERULAR FILTRATION RATE > 60.0 (>58); GLUCOSE, FASTING 99 MG/DL (60-100); POTASSIUM SERUM 4.5 MMOL/L (3.5-5.1); SODIUM LEVEL 142 MMOL/L (136-145)
[2023-06-07 08:00] VITALS: BP 112/73; TEMP 98.5; O2SAT 97
[2023-06-07 12:00] VITALS: BP 126/70; TEMP 98.4; O2SAT 98
[2023-06-07 16:00] VITALS: BP 130/76; TEMP 98.6; O2SAT 98
[2023-06-07] MEDS: PERCOCET 5MG/325MG TAB PO PRN ×2 (16:48→20:48)
[2023-06-07 20:00] VITALS: BP 117/64; TEMP 97.5; O2SAT 97
[2023-06-08] VITALS: BP 119/78; TEMP 98.7; O2SAT 98
[2023-06-08 04:00] VITALS: BP 111/69; TEMP 97.9; O2SAT 95
[2023-06-08 04:55] LABS: BASO % 0.7 % (0.0-1.0); EOS # 0.3 10^3/uL (0.0-0.5); EOS % 4.4 % (0.0-3.0); HEMATOCRIT 35.7 % (36.0-47.0); HEMOGLOBIN 11.8 g/dl (12.0-15.5); LYMPH # 2.8 10^3/uL (1.5-5.0); LYMPH % 45.1 % (24.0-44.0); MEAN CORPUSCULAR HEMOGLOBIN 31.4 pg (27.0-33.0); MEAN CORPUSCULAR HGB CONC 33.1 g/dl (32.0-36.5); MEAN CORPUSCULAR VOLUME 94.9 fl (80.0-96.0); MONO # 0.5 10^3/uL (0.0-0.8); MONO % 7.7 % (2.0-8.0); NEUTROPHILS # 2.6 10^3/uL (1.5-8.5); NEUTROPHILS % 41.9 % (36.0-66.0); PLATELET COUNT, AUTOMATED 391 10^3/uL (150-450); RED BLOOD COUNT 3.76 10^6/uL (4.00-5.40); WHITE BLOOD COUNT 6.1 10^3/uL (4.0-10.0)
[2023-06-08 06:00] LABS: BLOOD UREA NITROGEN < 5 MG/DL (9-23); CALCIUM LEVEL 8.5 MG/DL (8.5-10.1); CARBON DIOXIDE LEVEL 28 MMOL/L (20-31); CHLORIDE LEVEL 107 MMOL/L (98-107); CREATININE FOR GFR 0.63 MG/DL (0.55-1.30); GLOMERULAR FILTRATION RATE > 60.0 (>58); GLUCOSE, FASTING 95 MG/DL (60-100); POTASSIUM SERUM 4.2 MMOL/L (3.5-5.1); SODIUM LEVEL 140 MMOL/L (136-145)
[2023-06-08 07:48] VITALS: BP 121/72; TEMP 97.9; O2SAT 97
[2023-06-08] MEDS ORDERED: PERCOCET PO (11:02)
[2023-06-08] MEDS: LEVALBUTEROL 1.25MG 0.5ML CONCENTRATE NEB NEB PRN (11:29)
== END 2023-06-08 12:28 | disposition home or self-care (01) | DRG 121 ==
LOC: M OR 07:57 → M ICU 14:27
PROVIDERS: ADMIT Thoracic Surgery (Cardiothoracic Vascular Surgery); ATTEND Thoracic Surgery (Cardiothoracic Vascular Surgery)
PROC: 0BJQ4ZZ Inspection of Pleura, Percutaneous Endoscopic Approach (ICD-10-PCS; 2023-06-02)
PROC: 3E0L3GC Introduction of Other Therapeutic Substance into Pleural Cavity, Percutaneous Approach (ICD-10-PCS; 2023-06-02)
PROC: 0BBK4ZZ Excision of Right Lung, Percutaneous Endoscopic Approach (ICD-10-PCS; principal; 2023-06-02 09:30)
DX: J93.83 Other pneumothorax (principal); J43.9 Emphysema, unspecified; G62.89 Other specified polyneuropathies; Z85.3 Personal history of malignant neoplasm of breast; Z87.891 Personal history of nicotine dependence; F41.9 Anxiety disorder, unspecified; Z79.899 Other long term (current) drug therapy; E87.6 Hypokalemia; K64.8 Other hemorrhoids; K64.4 Residual hemorrhoidal skin tags

== ENCOUNTER → 2023-06-21 | Outpatient (CLI) | payer BC ==
[~2023-06-21] MED LIST changes: -LIDOCAINE 2% 100MG/5ML SDV (FOR ANES.) As Ordered ONE; -ONDANSETRON 4MG 2ML VIAL As Ordered ONE; -ROCURONIUM BROMIDE 50MG/5ML VIAL As Ordered ONE; -SUGAMMADEX SODIUM 500 MG/5 ML VIAL (BRIDION) As Ordered ONE; -fentaNYL 250 MCG/5 ML INJECTION As Ordered ONE; -propofoL 200 MG/20 ML VIAL As Ordered ONE
== END ==
LOC: M RAD 12:48
PROVIDERS: ATTEND Thoracic Surgery (Cardiothoracic Vascular Surgery)
DX: J93.11 Primary spontaneous pneumothorax (principal)

== ENCOUNTER → 2023-07-06 | Outpatient (CLI) | payer BC ==
[~2023-07-06] MED LIST changes: +PROHANCE 279.3MG/ML 15ML VIAL As Ordered ONE
== END ==
LOC: M RAD 10:34
PROVIDERS: ATTEND Nurse Practitioner
DX: Z98.82 Breast implant status (principal); Z85.3 Personal history of malignant neoplasm of breast
CPT/HCPCS: A9576; C8908

== ENCOUNTER → 2023-07-15 | Outpatient (CLI) | payer BC ==
[~2023-07-15] MED LIST changes: -PROHANCE 279.3MG/ML 15ML VIAL As Ordered ONE
== END ==
LOC: M RAD 13:49
PROVIDERS: ATTEND Thoracic Surgery (Cardiothoracic Vascular Surgery)
DX: J93.11 Primary spontaneous pneumothorax (principal); J43.9 Emphysema, unspecified

== ENCOUNTER → 2023-07-22 | Outpatient (CLI) | payer BC ==
[~2023-07-22] MED LIST changes: +PROHANCE 279.3MG/ML 15ML VIAL As Ordered ONE
== END ==
LOC: M RAD 15:50
DX: C50.412 Malignant neoplasm of upper-outer quadrant of left female breast (principal); Z17.0 Estrogen receptor positive status [ER+]
CPT/HCPCS: 74183; A9576

== ENCOUNTER → 2024-03-08 | Outpatient (CLI) | payer BC ==
[~2024-03-08] MED LIST changes: +GABA-1172 PO; -GABA-282 PO; +ONDA-282 PO; -ONDA4TAB6 PO; -PROHANCE 279.3MG/ML 15ML VIAL As Ordered ONE; +PROHANCE 279.3MG/ML 15ML VIAL ONE
== END ==
LOC: M PLAIMG 08:09
PROVIDERS: ATTEND Internal Medicine Medical Oncology
DX: K76.9 Liver disease, unspecified (principal); N28.1 Cyst of kidney, acquired; C50.912 Malignant neoplasm of unspecified site of left female breast; Z17.0 Estrogen receptor positive status [ER+]
CPT/HCPCS: 74183; A9576

== ENCOUNTER → 2024-03-27 | Outpatient (REF) | payer BC ==
[~2024-03-27] MED LIST changes: -PROHANCE 279.3MG/ML 15ML VIAL ONE
== END ==
LOC: M SFHCWAGY 14:55
PROVIDERS: ATTEND Obstetrics & Gynecology
DX: N93.9 Abnormal uterine and vaginal bleeding, unspecified (principal); N85.8 Other specified noninflammatory disorders of uterus

== ENCOUNTER 2024-04-11 06:18 | Day surgery (SDC) | payer BC ==
[~2024-04-11] VITALS: Ht 165.1 cm; Wt 66.1 kg
[2024-04-11] MEDS ORDERED: LR 500 ML IV SCH (06:25)
[2024-04-11 07:07] LABS: HEMATOCRIT 39.8 % (36.0-47.0); HEMOGLOBIN 13.7 g/dl (12.0-15.5); MEAN CORPUSCULAR HEMOGLOBIN 31.6 pg (27.0-33.0); MEAN CORPUSCULAR HGB CONC 34.4 g/dl (32.0-36.5); MEAN CORPUSCULAR VOLUME 91.7 fl (80.0-96.0); PLATELET COUNT, AUTOMATED 415 10^3/uL (150-450); RED BLOOD COUNT 4.34 10^6/uL (4.00-5.40); WHITE BLOOD COUNT 9.3 10^3/uL (4.0-10.0)
[2024-04-11] MEDS ORDERED: propofoL 200 MG/20 ML VIAL As Ordered ONE (07:09)
[2024-04-11] MEDS ORDERED: fentaNYL 100 MCG/2 ML INJECTION As Ordered ONE (07:09)
[2024-04-11] MEDS ORDERED: MIDAZOLAM INJ 2MG/2ML VIAL As Ordered ONE (07:09)
[2024-04-11] MEDS ORDERED: ROCURONIUM BROMIDE 50MG/5ML VIAL As Ordered ONE (07:09)
[2024-04-11] MEDS ORDERED: ONDANSETRON 4MG 2ML VIAL As Ordered ONE (07:09)
[2024-04-11] MEDS ORDERED: SUGAMMADEX SODIUM 500 MG/5 ML VIAL (BRIDION) As Ordered ONE (07:09)
[2024-04-11] MEDS ORDERED: ACETAMINOPHEN 1000MG/100ML IV BAG As Ordered ONE (07:09)
[2024-04-11] MEDS ORDERED: LIDOCAINE 2% 100MG/5ML SDV (FOR ANES.) As Ordered ONE (07:09)
[2024-04-11] MEDS: ceFAZolin SOD 2 GM in IV 1 EA IV ONE (07:45)
[2024-04-11] MEDS: METHYLENE BLUE 0.5% (5MG/ML) 10 ML AMP (PROVAYBLUE) As Ordered ONE (08:50)
[2024-04-11] MEDS ORDERED: dexmedeTOMIDine (4MCG/ML)200MCG/50ML BTL (PRECEDEX) As Ordered ONE (09:00)
[2024-04-11] MEDS ORDERED: KETOROLAC 60MG 2ML VIAL As Ordered ONE (09:30)
[2024-04-11] MEDS ORDERED: fentaNYL 100 MCG/2 ML INJECTION IV PRN (09:40)
[2024-04-11] MEDS ORDERED: MORPHINE 4 MG/ML 1ML VIAL IV PRN (09:45)
[2024-04-11] MEDS ORDERED: LR 1,000 ML IV SCH (09:45)
[2024-04-11] MEDS ORDERED: ONDANSETRON 4MG 2ML VIAL IV PRN (09:45)
[2024-04-11] MEDS ORDERED: PERCOCET 5MG/325MG TAB PO PRN (09:45)
[2024-04-11] MEDS ORDERED: PERCOCET PO (09:53)
[2024-04-11] MEDS ORDERED: COLA100C5 PO (09:53)
[2024-04-11] MEDS ORDERED: IBUP80TA PO (09:53)
[2024-04-11] MEDS: ONDANSETRON 4MG 2ML VIAL IV PRN (10:22)
[2024-04-11 10:45] VITALS: BP 99/66; TEMP 97.1; O2SAT 96
[2024-04-11 11:15] VITALS: BP 113/73; TEMP 97.6; O2SAT 98
[2024-04-11] MEDS: DOCUSATE SODIUM 100MG CAPSULE PO SCH (11:50)
[2024-04-11 12:06] VITALS: BP 136/60; TEMP 97.3; O2SAT 100
[2024-04-11] MEDS: PERCOCET 5MG/325MG TAB PO PRN (13:27)
[2024-04-11] MEDS ORDERED: KETOROLAC 30 MG/ML 1ML VIAL IV SCH (16:00)
[2024-04-12] MEDS ORDERED: IBUPROFEN 800 MG TAB PO SCH (18:00)
== END 2024-04-11 14:10 | disposition home or self-care (01) ==
LOC: M SDC 06:18 → M PED 10:45 → M SDC 14:10
PROVIDERS: ATTEND Obstetrics & Gynecology
DX: N80.03 Adenomyosis of the uterus (principal); D25.1 Intramural leiomyoma of uterus; N93.9 Abnormal uterine and vaginal bleeding, unspecified; N83.02 Follicular cyst of left ovary; N83.01 Follicular cyst of right ovary; N83.292 Other ovarian cyst, left side; N83.291 Other ovarian cyst, right side; Z85.3 Personal history of malignant neoplasm of breast; Z92.21 Personal history of antineoplastic chemotherapy; Z79.899 Other long term (current) drug therapy; Z88.5 Allergy status to narcotic agent; Z88.8 Allergy status to other drugs, medicaments and biological substances; Z87.891 Personal history of nicotine dependence; Z90.13 Acquired absence of bilateral breasts and nipples; G62.9 Polyneuropathy, unspecified
CPT/HCPCS: 36415; 58571; 81025; 85027; 86850; 86900; 86901; 88307; J0131; J0665; J0690; J1100; J1885; J2250; J2405; J3010; Q9968; S2900

== ENCOUNTER → 2024-06-11 | Outpatient (CLI) | payer BC ==
[~2024-06-11] MED LIST changes: +COLA100C5 PO; +IBUP80TA PO
[2024-06-11 16:25] LABS: BASO # 0.1 10^3/uL (0.0-0.2); BASO % 0.6 % (0.0-1.0); EOS # 0.1 10^3/uL (0.0-0.5); HEMATOCRIT 37.8 % (36.0-47.0); HEMOGLOBIN 12.7 g/dl (12.0-15.5); LYMPH # 3.6 10^3/uL (1.5-5.0); LYMPH % 43.2 % (24.0-44.0); MEAN CORPUSCULAR HEMOGLOBIN 30.2 pg (27.0-33.0); MEAN CORPUSCULAR HGB CONC 33.6 g/dl (32.0-36.5); MONO # 0.5 10^3/uL (0.0-0.8); MONO % 5.4 % (2.0-8.0); NEUTROPHILS # 4.1 10^3/uL (1.5-8.5); NEUTROPHILS % 49.4 % (36.0-66.0); PLATELET COUNT, AUTOMATED 349 10^3/uL (150-450); WHITE BLOOD COUNT 8.3 10^3/uL (4.0-10.0)
[2024-06-11 17:06] LABS: ALBUMIN 3.8 G/DL (3.2-5.2); ALKALINE PHOSPHATASE 88 U/L (35-104); ALT/SGPT 14 U/L (7.0-40); AST/SGOT 10 U/L (<34); BILIRUBIN,TOTAL < 0.2 MG/DL (0.3-1.2); BLOOD UREA NITROGEN 7 MG/DL (9-23); CALCIUM LEVEL 9.7 MG/DL (8.5-10.1); CARBON DIOXIDE LEVEL 30 MMOL/L (20-31); CHLORIDE LEVEL 102 MMOL/L (98-107); CREATININE FOR GFR 0.62 MG/DL (0.55-1.30); GLOMERULAR FILTRATION RATE > 60.0 (>58); GLUCOSE, FASTING 107 MG/DL (60-100); POTASSIUM SERUM 3.8 MMOL/L (3.5-5.1); SODIUM LEVEL 140 MMOL/L (136-145); TOTAL PROTEIN 7.1 G/DL (5.7-8.2)
== END ==
LOC: M LAB 16:02
PROVIDERS: ATTEND Internal Medicine Medical Oncology
DX: C50.919 Malignant neoplasm of unspecified site of unspecified female breast (principal)

== ENCOUNTER → 2024-07-11 | Outpatient (CLI) | payer BC ==
[~2024-07-11] MED LIST changes: +FEZO45TA PO; +PROHANCE 279.3MG/ML 15ML VIAL As Ordered ONE
== END ==
LOC: M RAD 12:34
PROVIDERS: ATTEND Internal Medicine Medical Oncology
DX: R92.2 Inconclusive mammogram (principal); Z90.13 Acquired absence of bilateral breasts and nipples; Z85.3 Personal history of malignant neoplasm of breast
CPT/HCPCS: A9576; C8908

== ENCOUNTER → 2024-08-07 | Outpatient (CLI) | payer BC ==
[~2024-08-07] MED LIST changes: -PROHANCE 279.3MG/ML 15ML VIAL As Ordered ONE
== END ==
LOC: M WHC 07:22
PROVIDERS: ATTEND Internal Medicine Medical Oncology
DX: Z85.3 Personal history of malignant neoplasm of breast (principal)

== ENCOUNTER → 2024-08-21 | Outpatient (CLI) | payer BC ==
[2024-08-21 09:47] LABS: BASO % 0.6 % (0.0-1.0); EOS # 0.1 10^3/uL (0.0-0.5); EOS % 1.1 % (0.0-3.0); LYMPH # 2.8 10^3/uL (1.5-5.0); LYMPH % 38.6 % (24.0-44.0); MEAN CORPUSCULAR HEMOGLOBIN 30.2 pg (27.0-33.0); MEAN CORPUSCULAR HGB CONC 33.3 g/dl (32.0-36.5); MEAN CORPUSCULAR VOLUME 90.5 fl (80.0-96.0); MONO # 0.4 10^3/uL (0.0-0.8); MONO % 5.3 % (2.0-8.0); NEUTROPHILS # 3.9 10^3/uL (1.5-8.5); PLATELET COUNT, AUTOMATED 361 10^3/uL (150-450); RED BLOOD COUNT 4.31 10^6/uL (4.00-5.40); WHITE BLOOD COUNT 7.2 10^3/uL (4.0-10.0)
[2024-08-21 10:21] LABS: ALBUMIN 3.6 G/DL (3.2-5.2); ALKALINE PHOSPHATASE 87 U/L (35-104); ALT/SGPT 11 U/L (7.0-40); AST/SGOT 10 U/L (<34); BILIRUBIN,TOTAL 0.3 MG/DL (0.3-1.2); BLOOD UREA NITROGEN 6 MG/DL (9-23); CALCIUM LEVEL 9.6 MG/DL (8.5-10.1); CARBON DIOXIDE LEVEL 28 MMOL/L (20-31); CHLORIDE LEVEL 103 MMOL/L (98-107); CHOLESTEROL LEVEL 263 MG/DL (<200); CHOLESTEROL RISK RATIO 5.61 (<5); CREATININE FOR GFR 0.67 MG/DL (0.55-1.30); FREE T4 0.97 NG/DL (0.89-1.76); GLOMERULAR FILTRATION RATE > 90.0 (>58); GLUCOSE, FASTING 93 MG/DL (60-100); HDL CHOLESTEROL 46.8 MG/DL (>40); IRON (FE) 70 UG/DL (50-170); LDL CHOLESTEROL 174.4 MG/DL (<100); NON-HDL-C 216.2 MG/DL; PERCENT SATURATION 23.2 % (13.2-45.0); POTASSIUM SERUM 4.5 MMOL/L (3.5-5.1); SODIUM LEVEL 140 MMOL/L (136-145); THYROID STIMULATING HORMONE 1.786 uIU/ML (0.55-4.78); TOTAL IRON BINDING CAPACITY 302 UG/DL (250-425); TOTAL PROTEIN 6.9 G/DL (5.7-8.2); TRIGLYCERIDES LEVEL 209 MG/DL (<150)
[2024-08-21 10:23] LABS: TOTAL 25(OH) VITAMIN D 10.5 NG/ML (20.0-100.0); VITAMIN B12 LEVEL 339 PG/ML (211-911)
[2024-08-21 10:24] LABS: FOLATE 8.79 NG/ML (>5.4)
[2024-08-21 10:48] LABS: HEMOGLOBIN A1c 5.3 % (4.0-6.0)
== END ==
LOC: M LAB 09:15
PROVIDERS: ATTEND Family Medicine
DX: Z00.00 Encounter for general adult medical examination without abnormal findings (principal)

== ENCOUNTER → 2025-04-16 | Outpatient (REF) | payer BC ==
[~2025-04-16] MED LIST changes: -IBUP-1022 PO; +IBUP600T42 PO
== END ==
LOC: M SFHCWAGY 15:12
PROVIDERS: ATTEND Obstetrics & Gynecology
DX: Z12.72 Encounter for screening for malignant neoplasm of vagina (principal); R87.5 Abnormal microbiological findings in specimens from female genital organs
CPT/HCPCS: 87624; G0123